=== PATIENT | female | born 2000 | race American Indian/Alaskan Native ===

== ENCOUNTER 2025-02-19 11:48 | Emergency (ER) | payer OTHER ==
[~2025-02-19] VITALS: Ht 165.1 cm; Wt 61.2 kg
[2025-02-19] MEDS ORDERED: KETOROLAC TROMETHAMINE 30 MG VIAL IV ONE (13:00)
[2025-02-19] MEDS ORDERED: CEFTRIAXONE SODIUM 1,000 MG VIAL IV ONE (13:00)
[2025-02-19] MEDS ORDERED: TAMSULOSIN HCL 0.4 MG CAP PO ONE ×2 (13:00→13:06)
[2025-02-19] MEDS ORDERED: FAMOtidine 10 MG/ML (4ML VIAL) IV ONE (13:00)
[2025-02-19] MEDS ORDERED: CEFTRIAXONE SODIUM 1,000 MG VIAL ONE (13:06)
[2025-02-19] MEDS ORDERED: KETOROLAC TROMETHAMINE 30 MG VIAL ONE (13:06)
[2025-02-19] MEDS ORDERED: FAMOTIDINE/PF 20 MG/2 ML VIAL ONE (13:07)
[2025-02-19 14:34] LABS: BASO % 0.3 % (0.1-1.2); EOS # 0.14 (0.04-0.54); EOS % 1.5 % (0.7-7.0); HEMATOCRIT 39.9 % (34.1-44.9); HEMOGLOBIN 13.3 g/dL (11.2-15.7); LYMPH # 1.45 (1.18-3.74); LYMPH % 15.8 % (19.3-53.1); MEAN CORPUSCULAR HEMOGLOBIN 30.5 pg (25.6-32.2); MONO % 7.6 % (4.7-12.5); NEUT # 6.82 (1.56-6.13); NEUT % 74.6 % (34.0-71.1); PLATELET COUNT 189 K/uL (163-369); RED BLOOD COUNT 4.36 M/uL (3.93-5.22); RED CELL DISTRIBUTION WIDTH 12.9 % (11.6-14.4)
[2025-02-19 14:54] LABS: ALKALINE PHOSPHATASE 94 U/L (50-136); ALT/SGPT 17 U/L (12-78); ANION GAP 10 (10.0-20.0); AST/SGOT 20 U/L (15-37); BILIRUBIN TOTAL 0.47 mg/dL (0.3-1.2); BLOOD UREA NITROGEN 15 mg/dL (7-18); BUN CREA RATIO 20 (7.0-25.0); CALCIUM 9.2 mg/dL (8.5-10.1); CARBON DIOXIDE 29 mEq/L (21-32); CHLORIDE 107 mmol/L (98-107); CREATININE SERUM 0.74 mg/dL (0.55-1.02); GFR 96.42; GLOBULINA 3.4 G/DL (2.4-3.5); GLUCOSE FASTING 107 mg/dL (65-100); OSMOLALITY SERUM 284 MOSM/KG (275-295); POTASSIUM 4.05 mEq/L (3.5-5.1); SODIUM 142 mmol/L (136-145); TOTAL PROTEIN 7.4 gm/dL (6.4-8.2)
[2025-02-19 15:59] LABS: HCG QUANTITATIVE < 1 mUI/mL (1-3)
[2025-02-19] MEDS ORDERED: BACTRIM DS TAB1 EACH PO (16:24)
[2025-02-19] MEDS ORDERED: NORFLEX100MG PO (16:24)
[2025-02-19] MEDS ORDERED: PEPCID AC20 MG PO (16:24)
[2025-02-20 00:46] LABS: PH,URINE 5.5 (5.0-8.0); URINE APPEARANCE Cloudy; URINE BILIRRUBIN Negative (NEGATIVE); URINE BLOOD Moderate; URINE COLOR Yellow; URINE GLUCOSE Negative (NEGATIVE); URINE KETONE Negative (NEGATIVE); URINE LEUKOCYTE Large; URINE NITRATE Positive; URINE PROTEIN Trace (NEGATIVE); URINE UROBILINOGEN 0.2 E.U./dl
[2025-02-20 00:50] LABS: URINE EPITHELIAL CELLS 5.2 uL (0.0-38.8); URINE RBC 4.7 uL (0.0-20.8); URINE WBC 686.6 uL (0.0-23.2)
[2025-02-20 00:52] LABS: URINE BACTERIA > 9821.5 uL (0.0-1933); URINE CAST 0.58 uL (0.0-1.40)
== END 2025-02-19 16:33 | disposition home or self-care (01) ==
LOC: ER 12:37
PROVIDERS: General Practice
DX: R10.9 Unspecified abdominal pain (principal)